=== PATIENT | female | born 1955 | race Caucasian/White ===

== ENCOUNTER → 2018-07-04 | Outpatient (CLI) | payer OTHER | LOC: M.CT 13:14 | DX: Z13.6 Encounter for screening for cardiovascular disorders (principal) ==

== ENCOUNTER → 2019-11-23 | Outpatient (CLI) | payer MEDICARE, OTHER | LOC: M.LAB 13:48 → M.CT 15:00 | PROVIDERS: ATTEND Internal Medicine Cardiovascular Disease | DX: I77.810 Thoracic aortic ectasia (principal); Z01.812 Encounter for preprocedural laboratory examination; I70.0 Atherosclerosis of aorta; E04.2 Nontoxic multinodular goiter; I25.10 Atherosclerotic heart disease of native coronary artery without angina pectoris; K44.9 Diaphragmatic hernia without obstruction or gangrene ==

== ENCOUNTER → 2021-01-30 | Outpatient (CLI) | payer MEDICARE, OTHER ==
[2021-01-30 08:41] LABS: BUN 17 mg/dL (7-18); CREATININE 0.9 mg/dL (0.6-1.3)
[2021-01-30 08:53] LABS: CHOLESTEROL 109 mg/dL (<200); HDL CHOLESTEROL 58 mg/dL (>40); LDL CHOLESTEROL 41 mg/dL (<100); TC:HDL 1.9 Ratio (Not establshd); TRIGLYCERIDE 52 mg/dL (<150); VLDL 10 mg/dL (<40)
[2021-01-30 09:00] LABS: SERUM ASSESSMENT Clear
== END ==
LOC: M.LAB 01-24 16:45 → M.CT 09:00
PROVIDERS: ATTEND Internal Medicine Cardiovascular Disease
DX: Z01.812 Encounter for preprocedural laboratory examination (principal); I25.10 Atherosclerotic heart disease of native coronary artery without angina pectoris; E04.1 Nontoxic single thyroid nodule; K44.9 Diaphragmatic hernia without obstruction or gangrene; I82.409 Acute embolism and thrombosis of unspecified deep veins of unspecified lower extremity; I77.810 Thoracic aortic ectasia; Z86.711 Personal history of pulmonary embolism